=== PATIENT | male | born 1995 | race Caucasian/White ===

== ENCOUNTER 2016-12-23 00:04 | Emergency (ER) | payer OTHER ==
[~2016-12-23] VITALS: Ht 175.3 cm; Wt 88.5 kg
[2016-12-23 00:55] VITALS: BP 157/82
--- NOTE | 2016-12-23 08:22 | REP ---
Clinical: Trauma. Technique: AP, lateral, bilateral oblique views right wrist. Comparison: 10/19/2005. Findings: The carpal bones, surrounding osseous structures, soft tissues, and joint spaces are normal. There is no evidence for acute fracture or dislocation. No subcutaneous emphysema or radiodense foreign body. Impression: Normal wrist series. No acute fracture or dislocation Signed by Antwon Pichardo MD 12/23/2016 08:13 A
== END 2016-12-23 02:01 | disposition home or self-care (01) ==
LOC: M ED 01:52
DX: S60.211A Contusion of right wrist, initial encounter (principal); W50.0XXA Accidental hit or strike by another person, initial encounter; Y92.89 Other specified places as the place of occurrence of the external cause; Y93.F9 Activity, other caregiving; Y99.0 Civilian activity done for income or pay; Z88.0 Allergy status to penicillin; Z88.8 Allergy status to other drugs, medicaments and biological substances